=== PATIENT | male | born 1970 | race Caucasian/White ===

== ENCOUNTER 2016-06-20 16:49 | Emergency (ER) | payer OTHER ==
[2016-06-20 16:59] VITALS: O2SAT 97
--- NOTE | 2016-06-20 17:04 | UCPHY ---
H & P Patient Type: New Chief Complaint Nursing Narrative: saturday hit tree skiing hurting Lt lower back HPI/ROS: HPI CHIEF COMPLAINT: Left posterior back pain HISTORY OF PRESENT ILLNESS: Patient very pleasant 46-year-old male no significant medical or surgical history presents to the urgent care with left posterior SI joint pain on exam. States on Saturday he was skiing with his kids when her park. Is skis went out from under him and his back specifically left posterior SI joint hit a tree. He has had ongoing pain since then it has progressively gotten better, states he was better on Saturday but each dates get better each day. He denies abdominal pain or urinary symptoms denies being blood. Denies chest pain or shortness of breath. He is able to ambulate without difficulty. Pain is located over the left posterior SI joint. No CVA pain. No ecchymosis. Past Medical History: No medical history Past Surgical History: No surgical history Social History: Denies daily use of drugs alcohol tobacco products lives locally, Family History: Noncontributory ROS REVIEW OF SYSTEMS: A comprehensive 10 point review of systems is otherwise negative aside from elements mentioned in the history of present illness. Exam Constitutional triage nursing summary reviewed, vital signs reviewed, awake/ alert. Eyes normal conjunctivae and sclera, EOMI, PERRLA. HENT normal inspection, atraumatic, moist mucus membranes, no epistaxis, neck supple/ no meningismus, no raccoon eyes. Respiratory clear to auscultation bilaterally, normal breath sounds, no respiratory distress, no wheezing. Cardiovascular rate normal, regular rhythm, no murmur, no edema, distal pulses normal. Gastrointestinal soft, non-tender, no rebound, no guarding, normal bowel sounds, no distension, no pulsatile mass. Genitourinary no CVA tenderness. Musculoskeletal back exam; specifically no midline lumbar pain, he does have mild tenderness palpation with deep palpation to the left posterior SI joint, otherwise unremarkable no ecchymosis, no CVA tenderness, no midline vertebral tenderness, full range of motion, no calf swelling, no tenderness of extremities , no meningismus, good pulses, neurovascularly intact. Skin pink, warm, & dry, no rash, skin atraumatic. Neurologic awake, alert and oriented x 3, AAOx3, moves all 4 extremities equally, motor intact, sensory intact, CN II-XII intact, normal cerebellar, normal vision, normal speech. Psychiatric normal mood/affect. Heme/Lymph/Immune no lymphadenopathy. Differential Diagnosis: Includes but is not limited to in a particular order back contusion, soft tissue injury, bony contusion, doubt fracture of the pelvis Medical Decision Making: Patient declined x-ray here in the Urgent Care he is okay with anti-inflammatory pain medicine and Tracy for nighttime severe pain. Understands return to the urgent care or emergency room if he has worsening symptoms questions or concerns. This includes abdominal pain, blood in his urine, worsening back pain. Ice his back. Anti-inflammatories, narcotics, take it easy, pain should slowly get better over the next week. Source: Patient - Personal History Current Tetanus Diphtheria and Acellular Pertussis (TDAP): Yes - Medical/Surgical History Other PMH: none - Family History Significant Family History: No pertinent family hx Constitutional: Initial Vital Signs Temperature (C) 36.6 C 06/20/16 16:57 Heart Rate 56 L 06/20/16 16:57 Respiratory Rate 18 06/20/16 16:57 Blood Pressure 131/76 H 06/20/16 16:57 O2 Sat (%) 97 06/20/16 16:57 O2 Delivery Mode Room Air Allergies/Adverse Reactions: No Known Allergies Allergy (Unverified 06/02/09 19:23) Home Medications: Medication Instructions Recorded None 06/02/09 Amoxicillin/Clavulanate Pot 875 mg PO BID #20 tab 12/02/10 [Augmentin 875 mg tab] Ciprofloxacin Ophth [Ciloxan eye 1 drop E.EYE TID #1 btl 12/02/10 drops] Hydrocodone Bit/Acetaminophen 1 each PO Q4-6PRN PRN #15 tablet 12/02/10 [Hydrocodon-Acetaminophen 5-325] Hydrocodone/APAP 5/325 [Tracy 1 - 2 tab PO Q4H PRN #10 tab 06/20/16 5/325] Ibuprofen [Motrin (*)] 800 mg PO Q6-8PRN #10 tab 06/20/16 Departure - Departure Disposition: Home, Routine, Self-Care Clinical Impression: Contusion, back Qualifiers: Encounter type: initial encounter Laterality: left Qualified Code(s): S20.222A - Contusion of left back wall of thorax, initial encounter Condition: Good Instructions: Contusion in Adults (ED) Additional Instructions: 1. Ice your back. 2. take ibuprofen for anti-inflammatory mild pain control. 3.Take Tracy for severe having pain. 4.Return to the urgent care or emergency room if you have any worsening symptoms. This includes worsening back pain. Abdominal pain or vomiting. Referrals: NONE *PRIMARY CARE P,. [Primary Care Provider] - As per Instructions Prescriptions: Hydrocodone/APAP 5/325 [Tracy 5/325] 1 - 2 tab PO Q4H PRN #10 tab PRN Reason: Pain, Moderate Ibuprofen [Motrin (*)] 800 mg PO Q6-8PRN #10 tab - PQRS PQRS Measurement: n/a
[2016-06-20 17:26] VITALS: BP 141/75; PULSE 68; RESP 20; TEMP 98.2
== END 2016-06-20 17:23 | disposition home or self-care (01) ==
LOC: CED 16:49
DX: S20.222A Contusion of left back wall of thorax, initial encounter (principal); V00.322A Snow-skier colliding with stationary object, initial encounter; Y93.23 Activity, snow (alpine) (downhill) skiing, snowboarding, sledding, tobogganing and snow tubing
CPT/HCPCS: 99214-PO; G0463-PO

== ENCOUNTER 2017-03-11 21:23 | Emergency (ER) | payer OTHER ==
--- NOTE | 2017-03-11 21:25 | EDPHY ---
H & P HPI/ROS: HPI CHIEF COMPLAINT: Dysuria HISTORY OF PRESENT ILLNESS: Patient very pleasant 46-year-old male, otherwise healthy denies any significant medical history presents emergency room with dysuria and urinary frequency. Patient reports since last he developed increasing urinary frequency and then this evening he developed some dysuria. States weak stream. Denies any rectal pain. Denies back pain or vomiting denies chills or fever denies abdominal pain. Main complaint urinary frequency with dysuria this evening. No testicular pain. Denies foul smell to his urine he does report that his urine seemed a little bit cloudy. Past Medical History: Denies significant medical history Past Surgical History: Denies significant surgical history Social History: Denies daily use of drugs alcohol tobacco. Family History: Noncontributory ROS REVIEW OF SYSTEMS: A comprehensive 10 point review of systems is otherwise negative aside from elements mentioned in the history of present illness. Exam Constitutional appears well nontoxic triage nursing summary reviewed, vital signs reviewed, awake/alert. Eyes normal conjunctivae and sclera, EOMI, PERRLA. HENT normal inspection, atraumatic, moist mucus membranes, no epistaxis, neck supple/ no meningismus, no raccoon eyes. Respiratory clear to auscultation bilaterally, normal breath sounds, no respiratory distress, no wheezing. Cardiovascular rate normal, regular rhythm, no murmur, no edema, distal pulses normal. Gastrointestinal soft, non-tender, no rebound, no guarding, normal bowel sounds, no distension, no pulsatile mass. Genitourinary no CVA tenderness. Musculoskeletal no midline vertebral tenderness, full range of motion, no calf swelling, no tenderness of extremities, no meningismus, good pulses, neurovascularly intact. Skin pink, warm, & dry, no rash, skin atraumatic. Neurologic awake, alert and oriented x 3, AAOx3, moves all 4 extremities equally, motor intact, sensory intact, CN II-XII intact, normal cerebellar, normal vision, normal speech. Psychiatric normal mood/affect. Heme/Lymph/Immune no lymphadenopathy. Differential Diagnosis: Includes but is not limited to in a particular order, UTI, cystitis, pyelonephritis, urethritis, prostatitis Medical Decision Making: Plan for this patient check UA, send for urine culture. Will treat with Keflex and Pyridium if he has a UTI. Will refer to Urology. And additionally return precautions discussed. Re-evaluation: 2140: Urinalysis shows infection. Will send for urine culture. Will start on Keflex 1st dose given in emergency room. Keflex take-home pack. Pyridium. Recommend follow up with Urology closely. Additionally return precautions discussed for UTI prostatitis. He understands return emergency room if develops worsening symptoms includes chills, rigors, fever, worsening pain, vomiting or not feeling well. I do feel that he can go home with antibiotics and peridium. Close follow-up with either his PCP or Urology. He understands. Source: Patient - Medical/Surgical History Other PMH: none Allergies/Adverse Reactions: No Known Allergies Allergy (Verified 03/11/17 21:38) Home Medications: Medication Instructions Recorded Cephalexin [Keflex] 500 mg PO Q6H #28 cap 03/11/17 Finasteride 03/11/17 Phenazopyridine HCl [Pyridium] 200 mg PO TID #15 tab 03/11/17 Medical Decision Making - Data Points Laboratory Results: 03/11/17 21:30 Urine Color YELLOW Urine Appearance HAZY Urine pH 7.0 (5.0-7.5) Ur Specific [place] 1.010 (1.002-1.030) Urine Protein NEGATIVE (NEGATIVE) Urine Ketones NEGATIVE (NEGATIVE) Urine Blood TRACE H (NEGATIVE) Urine Nitrate NEGATIVE (NEGATIVE) Urine Bilirubin NEGATIVE (NEGATIVE) Urine Urobilinogen 0.2 EU EU (0.2-1.0) Ur Leukocyte Esterase 1+ H (NEGATIVE) Urine RBC Pending Urine WBC Pending Ur Epithelial Cells Pending Urine Glucose NEGATIVE (NEGATIVE) Departure - Departure Disposition: Home, Routine, Self-Care Clinical Impression: Urinary tract infection Qualifiers: Urinary tract infection type: acute cystitis Hematuria presence: with hematuria Qualified Code(s): N30.01 - Acute cystitis with hematuria Condition: Good Instructions: Urinary Tract Infection in Men (ED), Cephalexin (By mouth) Additional Instructions: 1. Drink lots of fluids stay well-hydrated. 2. Antibiotics as prescribed. 3. Pyridium for pain. 4. Follow up with Urology. 5. Return emergency room if develops high fever, vomiting worsening symptoms. Referrals: Abhijeet Kapoor MD [Medical Doctor] - As per Instructions Prescriptions: Cephalexin [Keflex] 500 mg PO Q6H #28 cap Phenazopyridine HCl [Pyridium] 200 mg PO TID #15 tab
[2017-03-11] MEDS ORDERED: CEPHALEXIN 500MG PREPACK#4 BTL TAKEHOME ONE (21:39)
[2017-03-11] MEDS ORDERED: CEPHALEXIN 500 MG CAP PO ONE (21:39)
[2017-03-11] MEDS ORDERED: PHENAZOPYRIDINE HCL 200 MG TAB PO ONE (21:39)
[2017-03-11 21:43] VITALS: BP 145/93; PULSE 78; RESP 16; TEMP 98.6; O2SAT 95
== END 2017-03-11 22:06 | disposition home or self-care (01) ==
LOC: CED 21:23
DX: N30.01 Acute cystitis with hematuria (principal); B95.62 Methicillin resistant Staphylococcus aureus infection as the cause of diseases classified elsewhere
CPT/HCPCS: 81003-PO; 81015-PO